=== PATIENT | female | born 1965 ===

== ENCOUNTER 2022-07-11 14:55 | Emergency (ER) | payer SELFPAY ==
[2022-07-11 15:43] VITALS: BP 142/81
--- NOTE | 2022-07-11 16:05 | XRay Report ---
XR chest routine 2V INDICATION / CLINICAL INFORMATION: couhg. COMPARISON: None available. FINDINGS: SUPPORT DEVICES: None. HEART /PULMONARY VASCULATURE: No significant abnormality. LUNGS / PLEURA: No significant pulmonary or pleural abnormality. No pneumothorax. ADDITIONAL FINDINGS: No significant additional findings. IMPRESSION: 1. No acute findings. Signer Name: Moses Catherine MD Signed: 07/11/2022 4:00 PM Workstation Name: '[id number]
== END 2022-07-11 20:30 | disposition left against medical advice (07) ==
LOC: ED 14:55
DX: R51.9 Headache, unspecified (principal); Z53.21 Procedure and treatment not carried out due to patient leaving prior to being seen by health care provider
CPT/HCPCS: 71046